=== PATIENT | female | born 1980 | race Caucasian/White ===

== ENCOUNTER 2016-12-31 21:04 | Emergency (ER) | payer OTHER ==
[~2016-12-31] VITALS: Ht 167.6 cm; Wt 62.3 kg
[~2016-12-31 21:04] MED LIST: CHOL100010 PO; CLON1TAB3 PO; CLR10 PO; EFF75 PO; FLUT0.15; LAMO200T38 PO; LITH1TAB10 PO; MAGN400T6 PO; MULT-506 PO; OMEG10007 PO; QUET1TAB34 PO; VITACAP26 PO
[2016-12-31 21:11] VITALS: TEMP 37; Ht 167.6 cm; Wt 62.3 kg
[2016-12-31] MEDS ORDERED: ONDANSETRON INJ 2 MG/ML 2 ML VIAL IV STA (21:34)
[2016-12-31] MEDS ORDERED: MoRPHine SULFATE 10 MG/ML CARP/VIAL IV STA ×2 (21:34→23:18)
[2016-12-31] MEDS ORDERED: SODIUM CHLORIDE 0.9% 1000ML 1,000 ML IV STA (21:34)
[2016-12-31] MEDS ORDERED: MoRPHine SULFATE 2 MG/ML CARP ONE ×2 (21:43→23:21)
[2016-12-31] MEDS ORDERED: MoRPHine SULFATE 4 MG/ML 1 ML CARP\\VIAL ONE ×2 (21:43→23:20)
[2016-12-31 21:49] LABS: BASO % 0.4 %; BASO ABS # 0.02 K/uL (0-0.2); COMPLETE YES; EOS % 2.4 %; HEMATOCRIT 43.3 % (37-47); LYMPH % 35.9 %; LYMPH ABS # 1.93 K/uL (1.2-3.4); MEAN CELL VOLUME 89.5 fL (80-100); MEAN CORPUSCULAR HEMOGLOBIN 29.5 pg (25-34); MONO % 10.1 %; NEUT % 51.2 %; PLATELET COUNT 236 K/uL (130-400); RED BLOOD COUNT 4.84 M/uL (4.2-5.4); WHITE BLOOD COUNT 5.37 K/uL (4.8-10.8)
[2016-12-31 21:56] LABS: ALT/SGPT 30 U/L (12-78); BLOOD UREA NITROGEN 13 mg/dl (7-18); BUN/CREATININE RATIO 15.8 (10-20); CALCIUM 8.9 mg/dl (8.5-10.1); CARBON DIOXIDE 30 mmol/L (21-32); CHLORIDE 110 mmol/L (98-107); CREATININE 0.84 mg/dl (0.60-1.20); GLUCOSE 63 mg/dl (70-99); POTASSIUM 3.8 mmol/L (3.5-5.1); SODIUM 142 mmol/L (136-145)
[2016-12-31 21:59] LABS: ALKALINE PHOSPHATASE 72 U/L (45-117); AST/SGOT 21 U/L (15-37)
[2016-12-31 22:00] LABS: URINE APPEARANCE CLOUDY (CLEAR); URINE BILIRUBIN NEG (NEG); URINE COLOR YELLOW; URINE NITRITE NEG (NEG); URINE PH 8.5 (4.5-7.5); URINE SPECIFIC GRAVITY 1.015 (1.000-1.030); UROBILINOGEN NEG (NEG); ZZUR CULT IF INDIC CLEAN CATCH NO
[2016-12-31 22:02] LABS: MANUAL MICROSCOPIC REQUIRED? NO; REVIEW REQ? NO
--- NOTE | 2016-12-31 23:00 | DIAGNOSTIC IMAGING REPORT ---
PELVIC ULTRASOUND CLINICAL HISTORY: Right lower quadrant pain. COMPARISON STUDY: CT of the abdomen and pelvis December 21, 2015. TECHNIQUE: Transabdominal and transvaginal sonography of the pelvis was performed. FINDINGS: The uterus measures 9 x 4.9 x 4.5 cm. Endometrium measures 6 mm in thickness. Several nabothian cysts are incidentally noted. The right ovary measures 4.1 x 2 x 2.1 cm and the left measures 2.1 x 1.8 x 1.7 cm. Follicles are noted within each ovary. There is color flow within each ovary. There is no free fluid. IMPRESSION: Unremarkable pelvic ultrasound. Electronically signed by: Martin Myers M.D. 12/31/2016 10:59 PM Dictated Date/Time: 12/31/2016 10:57 PM
--- NOTE | 2016-12-31 23:24 | DIAGNOSTIC IMAGING REPORT ---
PA CHEST WITH ABDOMINAL SERIES CLINICAL HISTORY: Right lower quadrant abdominal pain. FINDINGS: A PA chest radiograph is obtained. No prior studies are available for comparison at the time of dictation. The cardiomediastinal silhouette is unremarkable. The lungs and pleural spaces are clear. No pneumothorax is seen. The bony thorax is grossly intact. Supine and erect abdominal radiographs are correlated with abdominal CT dated 12/21/2015. Cholecystectomy clips are noted. There is a nonobstructed abdominal bowel gas pattern. No evidence of intraperitoneal free air is seen. There is moderate colonic fecal retention. There are no abnormal abdominal calcifications. Phleboliths and a surgical clip are seen in the pelvis. The lumbosacral spine and bony pelvis appear intact. Mild lumbar scoliosis is identified. IMPRESSION: 1. No active disease in the chest. 2. Nonobstructed abdominal bowel gas pattern. Electronically signed by: Ady Mata M.D. 12/31/2016 11:22 PM Dictated Date/Time: 12/31/2016 11:20 PM
--- NOTE | 2016-12-31 23:42 | DIAGNOSTIC IMAGING REPORT ---
CT SCAN OF THE ABDOMEN AND PELVIS WITHOUT IV CONTRAST CLINICAL HISTORY: Right lower quadrant abdominal pain. COMPARISON STUDY: Abdominal CT dated 12/21/2015. TECHNIQUE: CT scan of the abdomen and pelvis is performed from the lung bases to the proximal femora. Images are reviewed in the axial, sagittal, and coronal planes. IV contrast was not administered for this examination as per the referring clinician. Note that the examination was performed in suboptimal fashion without oral and IV contrast. Automated dose control exposure was utilized. A dose lowering technique was utilized adhering to the principles of ALARA. CT DOSE: 265.20 mGy.cm FINDINGS: Lung bases: The heart is normal in size and without pericardial effusion. The lung bases are clear. Liver: The unenhanced liver is normal in size, contour, and attenuation. There is mild central intrahepatic biliary ductal dilatation. Gallbladder: Surgically absent. Spleen: Normal in size and attenuation. Pancreas: Unremarkable. Adrenal glands: Unremarkable. Kidneys: The unenhanced kidneys are normal in size and without hydronephrosis. There are no renal calculi identified. There is no evidence of contour deforming renal mass lesion. Abdominal vasculature: The abdominal aorta is normal in course and caliber. Bowel: The small bowel and colon are normal in course and caliber. There is moderate colonic fecal retention. Pill fragments are noted throughout the bowel. The appendix is not identified and reported surgically absent. Peritoneum: There is no intraperitoneal free air or abdominal ascites. There is a small fat-containing umbilical hernia. Lymphadenopathy: None. Pelvic viscera: The bladder, uterus, and adnexa are normal as visualized. Skeletal structures: No lytic or blastic lesions are seen. There is mild lumbosacral scoliosis. Sclerotic change is noted in the sacroiliac joints. IMPRESSION: 1. There are no acute infectious or inflammatory findings in the abdomen or pelvis. 2. Moderate constipation. Electronically signed by: Ady Mata M.D. 12/31/2016 11:41 PM Dictated Date/Time: 12/31/2016 11:35 PM
[2017-01-01 00:16] VITALS: BP 118/63; PULSE 78; O2SAT 96
--- NOTE | 2017-01-01 00:38 | EMERGENCY ROOM VISIT NOTE ---
History Report prepared by Shiva: Vicente Hilario Under the Supervision of: Dr. King Vasquez D.O. First contact with patient: 21:18 Chief Complaint: ABDOMINAL PAIN Stated Complaint: RLQ Nursing Triage Summary: right lower abdominal pain for three days today being the worse with increasing pain and radiation to the back and upper abdomen under the diaphram. nausea but no vomiting History of Present Illness The patient is a 36 year old female who presents to the Emergency Room with complaints of worsening right lower abdominal pain starting a few days ago. She states that the pain is radiating into her back and into her ribs. She additionally states that she is nauseous. She denies any history of kidney stones, and she says her last period was a week ago. She states that she is going to be having an ablation in a few days due to the periods. She notes that she was recently diagnosed with an ovarian cyst. Her last bowel movement was this morning. Pt denies headache, change in vision, fevers, chest pain, shortness of breath, vomiting, diarrhea, pain with urination, vaginal discharge , vaginal bleeding, and melena. She has a history of appendectomy an a cholecystectomy. Source of History: patient Onset: a few days ago Position: abdomen (RLQ) Timing: worsening Associated Symptoms: + nausea, + back pain Review of Systems See HPI for pertinent positives & negatives. A total of 10 systems reviewed and were otherwise negative. Past Medical & Surgical Surgical Problems: (1) H/O tubal ligation (2) Hx of appendectomy (3) Hx of cholecystectomy Social History Smoking Status: Former Smoker Marital Status: in relationship Housing Status: lives with family Occupation Status: employed Current/Historical Medications Scheduled Clonazepam (Klonopin), 1 MG PO PRN UD Fish Oil (Needham-3), 1 CAP PO DAILY Lamotrigine (Lamictal), 200 MG PO DAILY [place] Carbonate Ext Rel (Lithobid Ext Rel), 300 MG PO DAILY Magnesium Oxide (Mag-Ox), 400 MG PO DAILY Multivitamin (Multivitamin), 1 TAB PO DAILY Venlafaxine Hcl (Effexor), 75 MG PO DAILY Scheduled PRN Fluticasone Propionate (Nasal) (Flonase Allergy Relief), 1 SPRAY NA DIRECTED PRN for ALLERGIC REACTION Quetiapine Fumarate (Seroquel), 100 MG PO HS PRN for Sleep Allergies Coded Allergies: Amoxicillin (Verified Allergy, Unknown, HIVES, SWELLING, 12/31/16) Azithromycin (Verified Allergy, Unknown, HIVES, 12/31/16) Ciprofloxacin (Verified Allergy, Unknown, HIVES, SWELLING, 12/31/16) NSAIDs (Verified Allergy, Unknown, UNABLE TO TAKE DUE TO LITHIUM, 12/31/16) Tetracycline (Verified Allergy, Unknown, HIVES, 12/31/16) Ketorolac Tromethamine (Verified Adverse Reaction, Unknown, UNABLE TO TAKE DUE TO LITHIUM, 12/31/16) Physical Exam Vital Signs Date Time Temp Pulse Resp B/P (MAP) Pulse Ox O2 Delivery O2 Flow Rate FiO2 01/01/17 00:16 78 18 118/63 96 12/31/16 23:16 98 20 140/82 96 Room Air 12/31/16 21:50 96 20 113/77 99 Room Air 12/31/16 21:11 37.0 103 22 116/92 98 Room Air 12/31/16 21:10 98 Physical Exam GENERAL: sitting up in bed, disheveled, minimal distress, non-toxic EYE EXAM: normal conjunctiva OROPHARYNX: no exudate, no erythema, lips, buccal mucosa, and tongue normal and mucous membranes are moist NECK: supple, no nuchal rigidity, no adenopathy, non-tender LUNGS: Clear to auscultation. Normal chest wall mechanics HEART: no murmurs, S1 normal and S2 normal ABDOMEN: Minimal tenderness in the right lower quadrant. Abdomen soft, normo- active bowel sounds, no masses, no rebound or guarding. BACK: Back is symmetrical on inspection and there is no deformity, no midline tenderness, no CVA tenderness. SKIN: no rashes and no bruising UPPER EXTREMITIES: upper extremities are grossly normal. LOWER EXTREMITIES: No pitting edema. NEURO EXAM: Normal sensorium, cranial nerves II-XII grossly intact, normal speech, no gross weakness of arms, no gross weakness of legs. Gross sensation intact. Medical Decision & Procedures ER Provider Diagnostic Interpretation: Radiology results as stated below per my review and the radiologist's interpretation: PELVIC ULTRASOUND CLINICAL HISTORY: Right lower quadrant pain. COMPARISON STUDY: CT of the abdomen and pelvis December 21, 2015. TECHNIQUE: Transabdominal and transvaginal sonography of the pelvis was performed. FINDINGS: The uterus measures 9 x 4.9 x 4.5 cm. Endometrium measures 6 mm in thickness. Several nabothian cysts are incidentally noted. The right ovary measures 4.1 x 2 x 2.1 cm and the left measures 2.1 x 1.8 x 1.7 cm. Follicles are noted within each ovary. There is color flow within each ovary. There is no free fluid. IMPRESSION: Unremarkable pelvic ultrasound. Electronically signed by: Martin Myers M.D. 12/31/2016 10:59 PM Dictated Date/Time: 12/31/2016 10:57 PM PA CHEST WITH ABDOMINAL SERIES CLINICAL HISTORY: Right lower quadrant abdominal pain. FINDINGS: A PA chest radiograph is obtained. No prior studies are available for comparison at the time of dictation. The cardiomediastinal silhouette is unremarkable. The lungs and pleural spaces are clear. No pneumothorax is seen. The bony thorax is grossly intact. Supine and erect abdominal radiographs are correlated with abdominal CT dated 12/21/2015. Cholecystectomy clips are noted. There is a nonobstructed abdominal bowel gas pattern. No evidence of intraperitoneal free air is seen. There is moderate colonic fecal retention. There are no abnormal abdominal calcifications. Phleboliths and a surgical clip are seen in the pelvis. The lumbosacral spine and bony pelvis appear intact. Mild lumbar scoliosis is identified. IMPRESSION: 1. No active disease in the chest. 2. Nonobstructed abdominal bowel gas pattern. Electronically signed by: Ady Mata M.D. 12/31/2016 11:22 PM Dictated Date/Time: 12/31/2016 11:[address] SCAN OF THE ABDOMEN AND PELVIS WITHOUT IV CONTRAST CLINICAL HISTORY: Right lower quadrant abdominal pain. COMPARISON STUDY: Abdominal CT dated 12/21/2015. TECHNIQUE: CT scan of the abdomen and pelvis is performed from the lung bases to the proximal femora. Images are reviewed in the axial, sagittal, and coronal planes. IV contrast was not administered for this examination as per the referring clinician. Note that the examination was performed in suboptimal fashion without oral and IV contrast. Automated dose control exposure was utilized. A dose lowering technique was utilized adhering to the principles of ALARA. CT DOSE: 265.20 mGy.cm FINDINGS: Lung bases: The heart is normal in size and without pericardial effusion. The lung bases are clear. Liver: The unenhanced liver is normal in size, contour, and attenuation. There is mild central intrahepatic biliary ductal dilatation. Gallbladder: Surgically absent. Spleen: Normal in size and attenuation. Pancreas: Unremarkable. Adrenal glands: Unremarkable. Kidneys: The unenhanced kidneys are normal in size and without hydronephrosis. There are no renal calculi identified. There is no evidence of contour deforming renal mass lesion. Abdominal vasculature: The abdominal aorta is normal in course and caliber. Bowel: The small bowel and colon are normal in course and caliber. There is moderate colonic fecal retention. Pill fragments are noted throughout the bowel. The appendix is not identified and reported surgically absent. Peritoneum: There is no intraperitoneal free air or abdominal ascites. There is a small fat-containing umbilical hernia. Lymphadenopathy: None. Pelvic viscera: The bladder, uterus, and adnexa are normal as visualized. Skeletal structures: No lytic or blastic lesions are seen. There is mild lumbosacral scoliosis. Sclerotic change is noted in the sacroiliac joints. IMPRESSION: 1. There are no acute infectious or inflammatory findings in the abdomen or pelvis. 2. Moderate constipation. Electronically signed by: Ady Mata M.D. 12/31/2016 11:41 PM Dictated Date/Time: 12/31/2016 11:35 PM Laboratory Results 12/31/16 20:38 Red Blood Count 4.84, Mean Corpuscular Volume 89.5, Mean Corpuscular Hemoglobin 29.5, Mean Corpuscular Hemoglobin Concent 33.0, Mean Platelet Volume 10.0, Neutrophils (%) (Auto) 51.2, Lymphocytes (%) (Auto) 35.9, Monocytes (%) (Auto) 10.1, Eosinophils (%) (Auto) 2.4, Basophils (%) (Auto) 0.4, Neutrophils # (Auto ) 2.75, Lymphocytes # (Auto) 1.93, Monocytes # (Auto) 0.54, Eosinophils # (Auto ) 0.13, Basophils # (Auto) 0.02 12/31/16 20:38 Test 12/31/16 20:38 12/31/16 21:03 12/31/16 21:30 12/31/16 21:47 White Blood Count 5.37 K/uL (4.8-10.8) Red Blood Count 4.84 M/uL (4.2-5.4) Hemoglobin 14.3 g/dL (12.0-16.0) Hematocrit 43.3 % (37-47) Mean Corpuscular Volume 89.5 fL (80-100) Mean Corpuscular Hemoglobin 29.5 pg (25-34) Mean Corpuscular Hemoglobin Concent 33.0 g/dl (32-36) Platelet Count 236 K/uL (130-400) Mean Platelet Volume 10.0 fL (7.4-10.4) Neutrophils (%) (Auto) 51.2 % Lymphocytes (%) (Auto) 35.9 % Monocytes (%) (Auto) 10.1 % Eosinophils (%) (Auto) 2.4 % Basophils (%) (Auto) 0.4 % Neutrophils # (Auto) 2.75 K/uL (1.4-6.5) Lymphocytes # (Auto) 1.93 K/uL (1.2-3.4) Monocytes # (Auto) 0.54 K/uL (0.11-0.59) Eosinophils # (Auto) 0.13 K/uL (0-0.5) Basophils # (Auto) 0.02 K/uL (0-0.2) RDW Standard Deviation 42.0 fL (36.4-46.3) RDW Coefficient of Variation 12.9 % (11.5-14.5) Immature Granulocyte % (Auto) 0.0 % Immature Granulocyte # (Auto) 0.00 K/uL (0.00-0.02) Anion Gap 2.0 mmol/L (3-11) Est Creatinine Clear Calc Drug Dose 86.6 ml/min Estimated GFR () 103.6 Estimated GFR (Non- 89.4 BUN/Creatinine Ratio 15.8 (10-20) Calcium Level 8.9 mg/dl (8.5-10.1) Total Bilirubin 0.3 mg/dl (0.2-1) Direct Bilirubin < 0.1 mg/dl (0-0.2) Aspartate Amino Transf (AST/SGOT) 21 U/L (15-37) Alanine Aminotransferase (ALT/SGPT) 30 U/L (12-78) Alkaline Phosphatase 72 U/L (45-117) Total Protein 7.4 gm/dl (6.4-8.2) Albumin 3.8 gm/dl (3.4-5.0) Lipase 124 U/L (73-393) Urine Test NEG (NEG) Urine Color YELLOW Urine Appearance CLOUDY (CLEAR) Urine pH 8.5 (4.5-7.5) Urine Specific [place] 1.015 (1.000-1.030) Urine Protein NEG (NEG) Urine Glucose (UA) NEG (NEG) Urine Ketones NEG (NEG) Urine Occult Blood NEG (NEG) Urine Nitrite NEG (NEG) Urine Bilirubin NEG (NEG) Urine Urobilinogen NEG (NEG) Urine Leukocyte Esterase NEG (NEG) Urine WBC (Auto) 0 /hpf (0-5) Urine RBC (Auto) 0-4 /hpf (0-4) Urine Hyaline Casts (Auto) 0 /lpf (0-5) Urine Epithelial Cells (Auto) 10-20 /lpf (0-5) Urine Bacteria (Auto) NEG (NEG) Lactic Acid Level 0.7 mmol/L (0.4-2.0) Laboratory results per my review. Medications Administered Medications (Trade) Dose Ordered Sig/Razia Route Start Time Stop Time Status Last Admin Dose Admin Sodium Chloride 1,000 ml @ 999 mls/hr Q1H1M STAT IV 12/31/16 21:34 12/31/16 22:34 DC 12/31/16 21:47 999 MLS/HR Ondansetron HCl (Zofran Inj) 4 mg NOW STAT IV 12/31/16 21:34 12/31/16 21:38 DC 12/31/16 21:47 4 MG Morphine Sulfate (MoRPHine SULFATE INJ) 4 mg STK-MED ONCE .ROUTE 12/31/16 21:43 12/31/16 21:44 DC 12/31/16 21:47 4 MG Morphine Sulfate (MoRPHine SULFATE INJ) 2 mg STK-MED ONCE .ROUTE 12/31/16 21:43 12/31/16 21:44 DC 12/31/16 21:47 2 MG Morphine Sulfate (MoRPHine SULFATE INJ) 4 mg STK-MED ONCE .ROUTE 12/31/16 23:20 12/31/16 23:21 DC 12/31/16 23:23 4 MG Morphine Sulfate (MoRPHine SULFATE INJ) 2 mg STK-MED ONCE .ROUTE 12/31/16 23:21 12/31/16 23:22 DC 12/31/16 23:22 2 MG ED Course ED COURSE: Vital signs were reviewed and showed tachycardia The patients medical record was reviewed The above diagnostic studies were performed and reviewed. ED treatments and interventions as stated above. 2117: The patient was evaluated in room B5. A complete history and physical examination was performed. 2133: Zofran Inj 4mg IV, Sodium Chloride 1000 ml @ 999 mls/hr IV 3: Morphine Sulfate 2mg IV, Morphine Sulfate 4mg IV 0: Morphine Sulfate 4mg IV 2321: Morphine Sulfate 2mg IV 2353: Upon reevaluation, the patient is feeling well.I discussed my findings with the patient and she understands and agrees with the treatment plan. Based on the patients age, coexisting illnesses, exam and lab findings the decision to treat as an outpatient was made. The patient remained stable while under my care. The patient appeared well at the time of discharge. Medical Decision Differential diagnoses includes but is not limited to gastritis, peptic ulcer disease, GERD, gallbladder disease, pancreatitis, small bowel obstruction, acute coronary syndrome, pericarditis, ischemic bowel, irritable bowel disease, irritable bowel syndrome, appendicitis, diverticulitis, malignancy, hernia, urinary tract infection, torsion, /ectopic , perforation, trauma, infectious. Patient is a 36 her old female who presents the ER with right lower quadrant abdominal pain radiating to her back and upper abdomen. She does admit to nausea but no vomiting. Exam shows no signs peritonitis. Vitals show mild tachycardia. CBC along with BMP, LFTs, bilirubin and lipase was unremarkable. Lactic acid was negative. Urine was negative. Obstruction series was unremarkable. UA did show several RBCs. Lower abdominal ultrasound/pelvic ultrasound was negative. CT of abdomen and pelvis was completely negative. Patient was given several doses of IV morphine. CT did show a large amount of constipation. Pelvic ultrasound showed a scant amount of abdominal fluid. This could've been a recent ruptured cyst versus constipation this time. Updated patient. Declined pelvic exam. She was discharged to follow-up with PCP. Discussed with Pt concerning signs and symptoms to watch out for. Pt was instructed to follow up with their PCP and discussed with the patient their option to return to the ED at anytime for persistent or worsening symptoms. The appropriate anticipatory guidance and out-patient management, including indications for return to the emergency department, were explained at length to the patient and understood. [place] Drug Monitoring Program Search Results: patient reviewed within database Drug Monitoring Findings: Shows benzo and Ultram prescriptions. Last one filled 14th of this month. Medication Reconcilliation Current Medication List: was personally reviewed by me Blood Pressure Screening Patient's blood pressure: Normal blood pressure Blood pressure disposition: Did not require urgent referral Impression Primary Impression: Abdominal pain Scribe Attestation The scribe's documentation has been prepared under my direction and personally reviewed by me in its entirety. I confirm that the note above accurately reflects all work, treatment, procedures, and medical decision making performed by me. Departure Information Dispostion Home / Self-Care Referrals Tolu Reilly PA-C (PCP) Forms Call Back Authorization, HOME CARE DOCUMENTATION FORM, IMPORTANT VISIT INFORMATION Patient Instructions Abdominal Pain - [facility], My [facility] Additional Instructions Please follow up with your primary care doctor or if you are a student, [facility] with in the next 24 hours. Any worsening of your symptoms, please return to the ED immediately. This includes any fevers greater than 100.4, worsening pain, chest pain, shortness breath, persistent nausea, vomiting, unable to eat or drink, or any other concerning signs or symptoms from your standpoint. You were given medications during this visit that will inhibit your ability to drive, operate machinery and work. Please do NOT drive, operate machinery, drink alcohol or work for the next 12hrs. You were found to have a blood pressure greater than 120 systolic over 90 diastolic. Due to the new Medicare guidelines, we are now recommending that you follow up with your primary care doctor in regards to this elevated blood pressure. Please take Tylenol and/or Motrin as needed for pain. Please take MiraLAX for constipation. Problem Qualifiers Primary Impression: Abdominal pain Abdominal location: right lower quadrant Qualified Codes: R10.31 - Right lower quadrant pain
[2017-01-01 00:46] LABS: PREG INTERNAL NEGATIVE QC NEG CLEAR BACKGROUND; PREG INTERNAL POSITIVE QC POS CONTROL LINE
== END 2017-01-01 00:17 | disposition home or self-care (01) ==
LOC: EDBD 21:04 → C.EDB 21:07
DX: R10.31 Right lower quadrant pain (principal); Z98.51 Tubal ligation status; Z90.49 Acquired absence of other specified parts of digestive tract; Z98.890 Other specified postprocedural states; Z87.891 Personal history of nicotine dependence; Z79.899 Other long term (current) drug therapy; Z88.1 Allergy status to other antibiotic agents; Z88.2 Allergy status to sulfonamides; Z88.8 Allergy status to other drugs, medicaments and biological substances